=== PATIENT | female | born 2005 | race Two or more races ===

== ENCOUNTER 2025-09-12 14:35 | Emergency (ER) | payer MEDICAID, SELFPAY ==
[2025-09-12 14:40] VITALS: BP 106/71; PULSE 74; PULSE 76; RESP 15; RESP 18; TEMP 36.8; O2SAT 97
[2025-09-12 14:53] VITALS: BMI 29.5
--- NOTE | 2025-09-12 15:08 | EDNOTE_ITS ---
ED Headache RME/HPI General Chief Complaint: Syncope / Near Syncope Stated Complaint: SYNCOPE Time Seen by Provider: 09/12/25 15:04 Arrival date/time: 09/12/25 14:35 Limitations: no limitations RME / HPI RME / HPI Narrative: 20 year old female with history of migraine headaches for several years otherwise no other medical history reported presents to the ED BIBA from work for evaluation of headache and near syncopal episode today. Patient states she was standing at work when she began to feel light headed, dizzy, and nauseated accompanied by the headache. Patient states the headache began last night and remaining constant since. Described as aching in sensation that is located throughout head, rating 8/10 in severity. States headache today is similar to previous headaches. Reportedly has taken Excedrin with no relief. Patient mentioned she has consulted her PCP at [facility] regarding recurring migraine headaches and has only been prescribed Ibuprofen that does not provide relief. Denies having been referred to neurology. Patient additionally reports she is currently on day 2 of menses and denies headaches being associated with menstruation. Denies fevers, chills, or recent illness. Related Data Allergies Allergy/AdvReac Type Severity Reaction Status Date / Time No Known Allergies Allergy Verified 09/12/25 14:56 Review of Systems Review of Systems Systems Reviewed: All systems reviewed, normal except as documented Past Medical History Past Medical History NEUROLOGIC: Positive Migraine Social History SMOKING STATUS: Never smoker ED Exam General Limitations: Present no limitations General appearance: Present alert and in no apparent distress Head Head exam: Present atraumatic, normocephalic and normal inspection Eye Eye exam: Present normal appearance, PERRL and EOMI ENT ENT exam: Present normal exam, normal oropharynx and mucous membranes moist Neck Neck exam: Present normal inspection, full ROM and trachea midline Chest Chest inspection: Present normal inspection and symmetric chest wall rise Respiratory Respiratory exam: Present normal lung sounds bilaterally Cardiovascular Cardiovascular exam: Present regular rate, normal rhythm and normal heart sounds Abdominal Exam Abdominal exam: Present soft and normal bowel sounds Extremities Exam Extremities exam: Present normal inspection and full ROM Back Exam Back exam: Present normal inspection and full ROM Neurological Exam Neurological exam: Present alert, oriented X3 and CN II-XII intact Psychiatric Psychiatric exam: Present normal affect and normal mood Skin Skin exam: Present warm, dry, intact and normal color Course Quality Measures none Orders Category Date Time Status 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 NOW Care 09/12/25 15:28 Active Continuous Pulse Oximetry NOW Care 09/12/25 15:28 Completed Insert IV NOW Care 09/12/25 15:28 Active CBC Stat Lab 09/12/25 15:51 Results Comprehensive Metabolic Panel Stat Lab 09/12/25 15:51 Completed ESR [Sed Rate (ESR)] Stat Lab 09/12/25 15:51 Results Partial Thromboplastin Time Stat Lab 09/12/25 15:51 Completed Prothrombin Time with INR Stat Lab 09/12/25 15:51 Completed Urinalysis Stat Lab 09/12/25 16:35 Received Ketorolac Inj [Toradol Inj] Med 09/12/25 15:28 Discontinued 30 mg IVP X1 ONE Metoclopramide Inj [Reglan Inj] Med 09/12/25 15:28 Discontinued 10 mg IVP X1 ONE Sodium Chloride 0.9% 1000 ml [Ns] 1,000 ml Med 09/12/25 15:28 Discontinued IV 999 mls/hr Vital Signs Vital signs: Vital Signs Temperature 98.2 F 09/12/25 14:40 Pulse Rate 74 09/12/25 14:40 Respiratory Rate 18 09/12/25 14:40 Blood Pressure 106/71 09/12/25 14:40 Pulse Oximetry (%) 97 09/12/25 14:40 Oxygen Delivery Method Room Air 09/12/25 14:40 Pulse ox is 97% on room air which is adequate. Headache MDM Narrative MDM Narrative:: Deborah Alvarado am scribing for and in the presence of Dr. Jamison. Patient data External records reviewed:: [facility] previous records and EMS form Clinical information provided by:: patient and EMS Social determinants that could affect healthcare access:: none Patient has the following chronic illnesses:: Migraines How is presenting disease/condition affected by chronic disease/condition?: exacerbated by Evaluation data The following diagnostics were reviewed and interpreted by me:: lab results Lab and/or radiology exams considered but not ordered:: None Interpretation Summary: No acute findings Medications / Prescriptions Medications or Prescriptions considered but not ordered:: None Medication administrations:: Medication Administration History Discontinued Medications Sodium Chloride (Ns) 1,000 mls @ 999 mls/hr IV .Q1H1M ONE Stop: 09/12/25 16:28 Last Admin: 09/12/25 15:43 Dose: 999 mls/hr Documented By: VG Ketorolac Tromethamine (Ketorolac Inj 30 Mg/Ml Vial) 30 mg IVP X1 ONE Stop: 09/12/25 15:29 Last Admin: 09/12/25 15:42 Dose: 30 mg Documented By: FLORENTINO Metoclopramide HCl (Metoclopramide Inj 5 Mg/Ml Vial 2 Ml) 10 mg IVP X1 ONE; Protocol Stop: 09/12/25 15:29 Last Admin: 09/12/25 15:42 Dose: 10 mg Documented By: FLORENTINO See above Consultations Consultation(s) initiated? (list below): No Diagnosis Differential diagnosis headache: migraine, tension headache and headache Most likely diagnosis given after review of the tests above:: Migraine headaches Admission Indicated Admission indicated?: not indicated Admission Request Was there a request for admission?: No Disposition Plan Disposition Plan: Discharge Discharge Attestation Discharge Attestation: The patient and all family members were given an opportunity to ask questions and understood the discharge instructions. Discharge instructions specifically effects, indications for sooner follow up or return to the emergency department, and the expected course of current diagnosis. Patient condition: Stable Discharge Plan Plan Patient Disposition: HOME (Self Care) Patient condition on transfer: Stable Prescriptions/Referrals Referrals: Mathew Monroe PA-C [Primary Care Provider] - In 1 week Problem List Clinical Impression: Headache Patient/Caregiver Discharge Instructions Discharge Activity: activity as tolerated Education Materials: Self-Care for Headaches Additional Instructions: Follow-up with your doctor next week. Please ask for referral to neurology in regards to your headaches. Please keep a headache journal where you write down the time of day you get a headache and how long it lasts for. Also described the nature of the headache and location. Try to keep track of how much you sleep each day. Also include the time you eat or anything else significant during that day. Print Language: [place] Stand Alone Forms: Lori Award Info., Patient Portal Info Letter
[2025-09-12] MEDS: KETOROLAC INJ 30 MG/ML VIAL IVP (15:42)
[2025-09-12] MEDS: METOCLOPRAMIDE INJ 5 MG/ML VIAL 2 ML 10 MG IVP (15:42)
[2025-09-12] MEDS: SODIUM CHLORIDE 0.9% 1000 ML 1,000 ML 999 ML IV (15:43)
[2025-09-12 15:51] VITALS: PULSE 65
[2025-09-12 16:07] LABS: Basophils # (Auto) 0.1 Thou/mm3 (0.0-0.2); Basophils % (Auto) 1 % (0-2.5); Eosinophils # (Auto) 0.0 Thou/mm3 (0.0-0.5); Eosinophils % (Auto) 1 % (0-10); Hematocrit 37.8 % (36.0-46.0); Hemoglobin 12.7 g/dL (12.0-16.0); Immature Granulocytes Auto 0.01 Thou/mm3 (0.00-0.00); Lymphocytes # (Auto) 0.8 Thou/mm3 (1.0-4.8); Lymphocytes % (Auto) 11 % (10-50); Mean Corpuscular HGB Conc 33.6 g/dl (31.0-37.0); Mean Corpuscular Hemoglobin 28.4 pg (25.0-35.0); Mean Corpuscular Volume 85 fL (80-100); Monocytes # (Auto) 0.4 Thou/mm3 (0.0-0.8); Monocytes % (Auto) 5 % (0-12); Neutrophils # (Auto) 6.2 Thou/mm3 (1.8-7.7); Neutrophils % (Auto) 83 % (37-80); Nucleated Red Blood Cell # 0.00 Thou/mm3 (0.00-0.00); Nucleated Red Blood Cell % 0 /100 WBC (0); Platelet Count 264 Thou/mm3 (140-440); RDW Standard Deviation 37.8 fL (36.4-46.3); Red Blood Count 4.47 Miln/mm3 (4.00-5.20); White Blood Count 7.5 Thou/mm3 (3.6-11.0)
[2025-09-12 16:30] LABS: INR 1.1 (0.9-1.3); Partial Thromboplastin Time 24.8 Seconds (22.0-36.0); Prothrombin Time 11.4 Seconds (9.0-12.2)
[2025-09-12 16:47] LABS: Alanine Aminotransferase < 7 U/L (10-49); Albumin, Serum 4.2 gm/dL (3.5-5.0); Albumin/Globulin Ratio 2.0 (1.2-2.2); Alkaline Phosphatase 45 U/L (46-116); Anion Gap 11 (7-16); Aspartate Amino Transferase 12 U/L (0-34); BUN/Creatinine Ratio 18 Ratio (12-20); Bilirubin,Total 0.3 mg/dL (0.3-1.2); Blood Urea Nitrogen 11 mg/dL (9-23); Calcium 8.9 mg/dL (8.3-10.6); Calcium (Corrected) 8.9 mg/dL (8.5-10.1); Carbon Dioxide 26.3 mMol/L (20.0-31.0); Chloride 108 mMol/L (98-107); Creatinine (Component) 0.6 mg/dL (0.6-1.3); Estimated Creatinine Clearance 148.7 mL/min (>60); Globulin 2.1 gm/dL (2.3-3.5); Glucose 98 mg/dL (74-106); Osmolality,Calculated 288 (275-295); Potassium 3.8 mMol/L (3.4-5.1); Sodium 145 mMol/L (136-145); Total Protein 6.3 gm/dL (5.7-8.2); eGFR > 60 See Note
[2025-09-12 17:00] LABS: Collection Type, Urine Clean Catch
[2025-09-12 17:07] LABS: Bilirubin,Urine Negative (Negative); Blood,Urine Negative (Negative); Clarity,Urine Clear (Clear/Hazy); Color,Urine Lt-Yellow (Lt Yel-Yel); Glucose, Urine Negative (Negative); Ketones,Urine 2+ (Negative); Leukocyte Esterase,Urine Negative (Negative); Nitrite,Urine Negative (Negative); PH,Urine 7.0 (5.0-7.0); Protein,Urine Trace (Neg - Trace); RBC,Urine 3 /hpf (0-3); Specific Gravity,Urine 1.028 (1.001-1.035); Squamous Epithelial Cell,Urine < 1 /hpf (0-5); Urobilinogen,Urine Negative mg/dL (0.0-1.0); WBC,Urine 3 /hpf (0-5)
[2025-09-12 17:09] LABS: Sed Rate (ESR) 3 mm/hr (0-20)
[2025-09-12 17:33] VITALS: BP 116/61; PULSE 62; RESP 18; TEMP 36.6; O2SAT 98
== END 2025-09-12 17:35 | disposition home or self-care (01) ==
PROVIDERS: Emergency Provider Family Medicine; PCP Physician Assistant
DX: G43.909 Migraine, unspecified, not intractable, without status migrainosus (principal)
CPT/HCPCS: 36415; 80053; 81001; 85025; 85610; 85652; 85730; 99283; J1885; J2765; J7030

== ENCOUNTER 2025-09-14 14:37 | Emergency (ER) | payer MEDICAID, SELFPAY ==
--- NOTE | 2025-09-14 14:42 | EKG_ITS ---
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
--- NOTE | 2025-09-14 14:42 | XR_ITS ---
EXAMINATION: AP chest single view TECHNIQUE: 1. AP portable semiupright chest single view Date and time: September 14, 2025, 1607 hours INDICATIONS: Weakness syncopal episodes today FINDINGS: Normal heart size The lungs are clear. The osseous structures are intact IMPRESSION: No active disease
--- NOTE | 2025-09-14 14:47 | EDNOTE_ITS ---
ED Syncope RME/HPI General Chief Complaint: Syncope / Near Syncope Stated Complaint: SYNCOPE Time Seen by Provider: 09/14/25 14:42 Source: patient and EMS Arrival date/time: 09/14/25 14:37 Mode of arrival: EMS Limitations: no limitations RME / HPI RME / HPI narrative: Patient is a 20-year-old female no significant past medical history is in the emergency department after having had a near syncopal event while at work. 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 Patient states that on Monday she was seen for a similar reason was sent home. Has not followed up with her primary care care doctor yet. Denies fevers chills nausea vomiting chest pain dysuria hematuria melena bloody stool drugs alcohol smoking recent travel sick contacts. Per EMS patient initially was not can come to the emergency department however when she tried to ambulate became lightheaded again and so decided to come to the emergency department. Related Data Allergies Allergy/AdvReac Type Severity Reaction Status Date / Time No Known Allergies Allergy Verified 09/12/25 14:56 ED Exam General Limitations: Present no limitations General appearance: Present alert and in no apparent distress Head Head exam: Present atraumatic and normocephalic Eye Eye exam: Present normal appearance and PERRL ENT ENT exam: Present normal exam and normal oropharynx Neck Neck exam: Present normal inspection and full ROM Chest Chest inspection: Present symmetric chest wall rise Respiratory Respiratory exam: Present normal lung sounds bilaterally; Absent respiratory distress Cardiovascular Cardiovascular exam: Present normal rhythm Abdominal Exam Abdominal exam: Present soft; Absent distention, tenderness or guarding Back Exam Back exam: Present normal inspection Neurological Exam Neurological exam: Present alert, oriented X3, CN II-XII intact and other Psychiatric Psychiatric exam: Present normal affect and normal mood Skin Skin exam: Present warm, dry and intact Course Quality Measures none Orders Category Date Time Status EKG (ED ONLY) *Do not use* NOW Care 09/14/25 14:42 Completed CXR [XR chest 1V] Stat Exams 09/14/25 14:42 Completed EKG (ED Only) Stat Exams 09/14/25 14:42 Draft CBC Stat Lab 09/14/25 15:00 Completed CMP [Comprehensive Metabolic Panel] Stat Lab 09/14/25 15:00 Completed Drug Screen,Urine Stat Lab 09/14/25 14:49 Completed HCG,Qualitative Serum Stat Lab 09/14/25 15:00 Completed T4 (Thyroxine) Stat Lab 09/14/25 15:00 Completed TSH [Thyroid Stimulating Hormone] Stat Lab 09/14/25 15:00 Completed Troponin I Stat Lab 09/14/25 15:00 Completed UA, C/S IF [Urinalysis, C/S if Indicated] Stat Lab 09/14/25 14:49 Completed Ringers Lactated 1000 ml [Lactated Ringers] 1,000 ml Med 09/14/25 14:42 Discontinued IV 999 mls/hr Vital Signs Vital signs: Vital Signs Temperature 98.5 F 09/14/25 14:48 Pulse Rate 60 09/14/25 14:48 Respiratory Rate 18 09/14/25 14:48 Blood Pressure 106/59 L 09/14/25 14:48 Pulse Oximetry (%) 98 09/14/25 14:48 Oxygen Delivery Method Room Air 09/14/25 14:48 Syncope MDM Narrative MDM Narrative:: Patient is a 20-year-old female seen emerged from concerns for near syncopal event earlier today. Vital signs and exam as listed. Concern for ACS arrhythmia electrolyte abnormality metabolic disturbance dehydration, among others. Ordered labs EKG chest x-ray after medication for symptom relief On reevaluation patient hemodynamically stable not in distress GCS 15 no focal neurodeficits. Labs without any acute hematologic abnormality. No significant electrolyte abnormality. Troponin not elevated, thyroid studies unremarkable. Patient is not . Urinalysis without evidence of infection drug screen negative. Chest x-ray unremarkable. EKG performed today at 1659 notable for sinus rhythm, heart rate 55, normal intervals, nonspecific T wave changes, not a cardiac alert. 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 Also advised her to hydrate well, is important that she did not operate heavy machinery or drive given her episodes of syncope. Patient data External records reviewed:: [facility] previous records and EMS form Clinical information provided by:: patient and EMS Social determinants that could affect healthcare access:: none Patient has the following chronic illnesses:: none How is presenting disease/condition affected by chronic disease/condition?: uneffected by Evaluation data The following diagnostics were reviewed and interpreted by me:: lab results, radiology exam(s) and EKG tracing(s) Lab and/or radiology exams considered but not ordered:: None Interpretation Summary: see mdm Medications / Prescriptions Medications or Prescriptions considered but not ordered:: None Medication administrations:: Medication Administration History Discontinued Medications Lactated Ringer's (Lactated Ringers) 1,000 mls @ 999 mls/hr IV .Q1H1M ONE Stop: 09/14/25 15:42 Last Infusion: 09/14/25 18:12 Dose: Infused Documented By: Admin: 09/14/25 16:50 Dose: 999 mls/hr Documented By: XIANG See above Consultations Consultation(s) initiated? (list below): No Diagnosis Syncope Differential Diagnosis: other (see mdm) Most likely diagnosis given after review of the tests above:: syncope Admission Indicated Admission indicated?: not indicated Admission Request Was there a request for admission?: No Disposition Plan Disposition Plan: Discharge Discharge Attestation Discharge Attestation: The patient and all family members were given an opportunity to ask questions and understood the discharge instructions. Discharge instructions specifically effects, indications for sooner follow up or return to the emergency department, and the expected course of current diagnosis. Patient condition: Stable Discharge Plan Plan Patient Disposition: HOME (Self Care) Prescriptions/Referrals Referrals: No Primary/Family,Physician [Primary Care Provider] - In 1 week Problem List Clinical Impression: Syncope Patient/Caregiver Discharge Instructions Education Materials: ED Fainting, Uncertain Cause Additional Instructions: Es importante que no conduzca ni opere maquinaria pesada hasta que haya sido evaluado por bran m?dico de atenci?n primaria y bran cardi?logo, dados tracey episodios de desmayos. Regresar de inmediato si tiene empeoramiento de sintomas o sintomas de preocupacion. Print Language: [place] Citizen Stand Alone Forms: Lori Award Info., Patient Portal Info Letter
[2025-09-14 14:48] VITALS: BP 106/59; PULSE 60; RESP 18; TEMP 36.9; O2SAT 98
[2025-09-14 14:55] LABS: Collection Type, Urine Clean Catch
[2025-09-14 15:06] LABS: Bilirubin,Urine Negative (Negative); Blood,Urine Trace (Negative); Clarity,Urine Clear (Clear/Hazy); Color,Urine Colorless (Lt Yel-Yel); Culture Indicated,Urine Not Indicated; Glucose, Urine Negative (Negative); Ketones,Urine Negative (Negative); Leukocyte Esterase,Urine Negative (Negative); Nitrite,Urine Negative (Negative); PH,Urine 6.0 (5.0-7.0); Protein,Urine Negative (Neg - Trace); RBC,Urine 1 /hpf (0-3); Specific Gravity,Urine 1.008 (1.001-1.035); Squamous Epithelial Cell,Urine 1 /hpf (0-5); Urobilinogen,Urine Negative mg/dL (0.0-1.0); WBC,Urine 1 /hpf (0-5)
[2025-09-14 15:08] LABS: Basophils # (Auto) 0.1 Thou/mm3 (0.0-0.2); Basophils % (Auto) 1 % (0-2.5); Eosinophils # (Auto) 0.1 Thou/mm3 (0.0-0.5); Eosinophils % (Auto) 1 % (0-10); Hematocrit 39.0 % (36.0-46.0); Hemoglobin 13.1 g/dL (12.0-16.0); Immature Granulocytes Auto 0.01 Thou/mm3 (0.00-0.00); Lymphocytes # (Auto) 1.4 Thou/mm3 (1.0-4.8); Lymphocytes % (Auto) 19 % (10-50); Mean Corpuscular HGB Conc 33.6 g/dl (31.0-37.0); Mean Corpuscular Hemoglobin 28.7 pg (25.0-35.0); Mean Corpuscular Volume 85 fL (80-100); Monocytes # (Auto) 0.5 Thou/mm3 (0.0-0.8); Monocytes % (Auto) 6 % (0-12); Neutrophils # (Auto) 5.5 Thou/mm3 (1.8-7.7); Neutrophils % (Auto) 73 % (37-80); Nucleated Red Blood Cell # 0.02 Thou/mm3 (0.00-0.00); Nucleated Red Blood Cell % 0 /100 WBC (0); Platelet Count 264 Thou/mm3 (140-440); RDW Standard Deviation 38.3 fL (36.4-46.3); Red Blood Count 4.57 Miln/mm3 (4.00-5.20); White Blood Count 7.6 Thou/mm3 (3.6-11.0)
[2025-09-14 15:36] VITALS: PULSE 64; RESP 18; O2SAT 97
[2025-09-14 15:39] LABS: Alanine Aminotransferase < 7 U/L (10-49); Albumin, Serum 4.4 gm/dL (3.5-5.0); Albumin/Globulin Ratio 2.0 (1.2-2.2); Alkaline Phosphatase 47 U/L (46-116); Anion Gap 10 (7-16); Aspartate Amino Transferase 14 U/L (0-34); BUN/Creatinine Ratio 8 Ratio (12-20); Bilirubin,Total 0.3 mg/dL (0.3-1.2); Blood Urea Nitrogen 5 mg/dL (9-23); Calcium 9.3 mg/dL (8.3-10.6); Calcium (Corrected) 9.3 mg/dL (8.5-10.1); Carbon Dioxide 26.1 mMol/L (20.0-31.0); Chloride 109 mMol/L (98-107); Creatinine (Component) 0.6 mg/dL (0.6-1.3); Globulin 2.2 gm/dL (2.3-3.5); Glucose 108 mg/dL (74-106); Osmolality,Calculated 286 (275-295); Potassium 3.7 mMol/L (3.4-5.1); Sodium 145 mMol/L (136-145); Thyroid Stimulating Hormone 0.72 uIU/mL (0.55-4.78); Total Protein 6.6 gm/dL (5.7-8.2); Troponin I < 0.002 ng/mL (0.0-0.045); eGFR > 60 See Note
[2025-09-14 15:44] VITALS: BMI 27.4
[2025-09-14 15:45] LABS: HCG,Qualitative Serum Negative
[2025-09-14 15:52] LABS: T4 (Thyroxine) 8.5 mcg/dL (4.5-10.9)
[2025-09-14 16:10] LABS: Amphetamine/Methamp Scrn,U Negative (Negative); Barbiturate Screen,Urine Negative (Negative); Benzodiazepines Screen,Urine Negative (Negative); Benzoylecgonine Screen, Ur Negative (Negative); Fentanyl Screen,Urine Negative (Negative); Opiate Screen,Urine Negative (Negative); THC Screen,Urine Negative (Negative)
[2025-09-14 16:48] VITALS: BP 132/78; PULSE 62; RESP 16; O2SAT 96
[2025-09-14] MEDS: RINGERS LACTATED 1000 ML 1,000 ML 999 ML IV (16:50)
== END 2025-09-14 18:13 | disposition home or self-care (01) ==
PROVIDERS: Emergency Provider Emergency Medicine
DX: R55 Syncope and collapse (principal)
CPT/HCPCS: 36415; 71045; 80053; 80307; 81001; 84436; 84443; 84484; 84703; 85025; 93005; 96360; 99283; J7120